=== PATIENT | male | born 1995 | race Caucasian/White ===

== ENCOUNTER 2017-01-08 16:04 | Emergency (ER) | payer SELFPAY ==
[~2017-01-08] VITALS: Ht 177.8 cm; Wt 117.7 kg
[~2017-01-08 16:04] MED LIST: CLARITIN; LORTAB 5/500 501 TAB PO; NASONEX SPRAY; NO HOME MEDICATIONS; NORCO 325 MG-51 TAB PO; PROZAC 20MG20 MG PO; SKELAXIN800 MG PO; TYLENOL/CODEINE1 ML PO; ULTRAM 50MG TAB50 MG PO; ZYRTEC1 MG/ML PO
[2017-01-08 16:13] VITALS: BP 140/82; TEMP 98.2
[2017-01-08] MEDS ORDERED: ATIVAN 0.50.5 MG/TAB PO (16:16)
[2017-01-08] MEDS ORDERED: NORCO 325 MG-51 TAB PO (16:40)
[2017-01-08 17:13] VITALS: PULSE 87
== END 2017-01-08 17:12 | disposition home or self-care (01) ==
LOC: COL.ER 16:04
DX: S20.222A Contusion of left back wall of thorax, initial encounter (principal); S20.221A Contusion of right back wall of thorax, initial encounter; W22.8XXA Striking against or struck by other objects, initial encounter; Y92.008 Other place in unspecified non-institutional (private) residence as the place of occurrence of the external cause
CPT/HCPCS: J2360